=== PATIENT | male | born 1995 | race Caucasian/White ===

== ENCOUNTER 2021-07-17 22:12 | Emergency (ER) | payer MEDICAID, OTHER ==
[~2021-07-17] VITALS: Ht 172.7 cm; Wt 77.0 kg
[2021-07-18] MEDS ORDERED: IBUPROFEN 600MG TABLET PO ONE
[2021-07-18 00:18] VITALS: BP 122/66
[2021-07-18] MEDS ORDERED: IBUP-2029 MT (00:21)
== END 2021-07-18 01:05 | disposition home or self-care (01) ==
LOC: ER 22:12
DX: S62.394A Other fracture of fourth metacarpal bone, right hand, initial encounter for closed fracture (principal); J45.909 Unspecified asthma, uncomplicated; X58.XXXA Exposure to other specified factors, initial encounter; Y93.89 Activity, other specified; Y92.89 Other specified places as the place of occurrence of the external cause
CPT/HCPCS: 29125; 73130; 99283